=== PATIENT | female | born 1995 | race Caucasian/White ===

== ENCOUNTER 2016-07-09 17:28 | Emergency (ER) | payer BC ==
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
[2016-07-09 20:49] VITALS: BP 107/68
== END 2016-07-09 20:48 | disposition home or self-care (01) ==
LOC: EDBD → ED 17:28
DX: S60.222A Contusion of left hand, initial encounter (principal); W50.1XXA Accidental kick by another person, initial encounter; Y93.9 Activity, unspecified; Y92.9 Unspecified place or not applicable
CPT/HCPCS: 99282